=== PATIENT | female | born 1930 | race Caucasian/White ===

== ENCOUNTER 2017-05-05 07:47 | Day surgery (SDC) | payer MEDICARE, OTHER ==
[2017-05-04 13:17] VITALS: BMI 29.9
[2017-05-05] VITALS (10 sets, daily range): BP systolic 148–161; BP diastolic 67–78; PULSE 65–69; RESP 15–18; Ht 149.9 cm; Wt 65.2 kg
[~2017-05-05] VITALS: Ht 149.9 cm; Wt 65.2 kg
--- NOTE | 2017-05-05 03:57 | PREOPHP ---
DATE OF ADMISSION: 05/05/2017 HISTORY OF PRESENT ILLNESS: This 86-year-old patient is admitted for elective cataract surgery of the left eye. The patient has had progressive deterioration in both eyes over the past 6 months without any prior history of eye disease or injury, other than a pterygium surgery of the left eye 10 years ago. PAST MEDICAL HISTORY: The patient's systemic history is positive for hypothyroidism, systemic hypertension. MEDICATIONS: Current medication includes levothyroxine, lisinopril, aspirin (discontinued 1 week prior to surgery). Ibuprofen. ALLERGIES: THERE ARE NO KNOWN ALLERGIES. PHYSICAL EXAMINATION: EYES: On examination, visual acuity best corrected is 20/70 in the right eye and hand motion vision in the left eye. Slit lamp examination reveals the presence of some hazy corneal surface in the nasal quadrant of the right eye where the patient prior previously had pterygium surgery. Examination of the lens reveals anterior cortical nuclear sclerotic and posterior subcapsular cataract, greater in the left eye than the right eye. Applanation tonometry is 20 mmHg. Examination of the retina in the right eye was within normal limits and in the left eye is obscured by the advanced cataract. DIAGNOSIS: Mature cataract, left eye. PLAN: Cataract extraction with lens implant, left eye. The risks and alternatives of the surgery have been discussed with the patient. The patient has opted to proceed with surgery Dictated By: Angelo Chandler MD /[email or web address]/cecily /Document#: [id number]
[~2017-05-05 07:47] MED LIST: ASPI-664 PO; BALANCED SALT SOLN 500 ML OPH IRRIG ONE; LIDOCAINE 2% (SDV) 5 ML INJ ONE; PROPOFOL 200 MG INJ ONE; THYROID MEDS
[2017-05-05] MEDS ORDERED: CYCLOPENTOLATE/PHENYLEPH 2 ML OPH OPER SCH (08:00)
[2017-05-05] MEDS ORDERED: CIPROFLOXACIN 0.3% 2.5 ML OPH OPER SCH (08:00)
[2017-05-05] MEDS ORDERED: DICLOFENAC 0.1% 2.5 ML OPH OPER SCH (08:00)
[2017-05-05] MEDS ORDERED: TROPICAMIDE 1% 2 ML OPH OPER SCH (08:00)
[2017-05-05] MEDS ORDERED: LEVO25TA50 PO (08:22)
[2017-05-05] MEDS ORDERED: LISI20TA11 PO (08:22)
[2017-05-05] MEDS ORDERED: CEFAZOLIN 1 GM INJ ONE (10:26)
[2017-05-05] MEDS ORDERED: LIDOCAINE 4% (MPF) 5 ML INJ ONE (10:26)
[2017-05-05] MEDS ORDERED: CARBACHOL 0.01% 1.5 ML OPH INJ ONE (10:27)
[2017-05-05] MEDS ORDERED: DEXAMETHASONE 4 MG/ML 1 ML INJ ONE (10:27)
[2017-05-05] MEDS ORDERED: GENTAMICIN 80 MG INJ ONE (10:27)
[2017-05-05] MEDS ORDERED: EPINEPHrine 1 MG INJ ONE ×2 (10:27→11:57)
[2017-05-05] MEDS ORDERED: HYALURONATE/CHONDROITIN 1ML OPH INJ ONE (10:27)
[2017-05-05] MEDS ORDERED: CARBACHOL 0.01% 1.5 ML OPH INJ IO ONE (11:07)
[2017-05-05] MEDS ORDERED: CEFAZOLIN 1 GM INJ INJ ONE (11:08)
[2017-05-05] MEDS ORDERED: DEXAMETHASONE 4 MG/ML 1 ML INJ INJ ONE (11:08)
[2017-05-05] MEDS ORDERED: HYALURONATE/CHONDROITIN 1ML OPH INJ IO ONE (11:08)
[2017-05-05] MEDS ORDERED: hydrALAzine 20 MG INJ IV PRN (11:30)
[2017-05-05] MEDS ORDERED: ONDANSETRON 4 MG INJ IV PRN (11:30)
[2017-05-05] MEDS ORDERED: MEPERIDINE 25 MG INJ IV PRN (11:30)
[2017-05-05] MEDS ORDERED: FENTAnyl 50 MCG/ML VIAL IV PRN (11:30)
[2017-05-05] MEDS ORDERED: METOCLOPRAMIDE 10 MG INJ IV PRN (11:30)
[2017-05-05] MEDS ORDERED: DIPHENHYDRAMINE 50 MG INJ IV PRN (11:30)
[2017-05-05] MEDS ORDERED: hydrALAzine 20 MG INJ ONE (11:35)
[2017-05-05] MEDS ORDERED: HYALURONATE/CHONDROITIN 1ML OPH INJ ZFS ONE (14:00)
--- NOTE | 2017-05-11 10:28 | OPR ---
DATE OF OPERATION: 05/05/2018 PREOPERATIVE DIAGNOSIS: Mature cataract, left eye. POSTOPERATIVE DIAGNOSIS: Mature cataract, left eye. OPERATION PERFORMED: Cataract extraction with lens implant, left eye. SURGEON: Angelo Chandler MD ANESTHESIA: . OPERATIVE PROCEDURE: The patient was brought to the operating room on an eye gurney, positioned appropriately, attached electrocardiogram monitor, and given oxygen by nasal cannula. After intravenous sedation was administered, the patient received local anesthesia using lidocaine 4 percent, given lid block and retrobulbar injection. The patient was then prepped and draped in the usual sterile manner and a speculum was inserted between the lids of the left eye. Two paracentesis incisions were made with Superblade in the supranasal and supratemporal cornea adjacent to the limbus. Following this, a 3.0 mm keratome was used to enter the anterior chamber through the 12 o'clock position through clear cornea. An irrigating cystotome was introduced into the anterior chamber and the chamber was filled with DisCoVisc. A large anterior capsulotomy was performed and then balanced salt solution was used for hydrodissection. Phacoemulsification of the lens nucleus was begun using the higher power setting on the [employer] phacoemulsification machine. During the procedure, following sculpting of the lens nucleus prior to removal of the fragments, the [employer] instrument failed and the foot pedal was no longer able to turn on the ultrasonic power. A brief period of time elapsed during which a change was made to the [employer] phacoemulsification unit, at which point the phacoemulsification was then continued and remnants of the lens nucleus was removed. There was noted . DisCoVisc . The through the conjunctiva fornix inferiorly. The speculum was then removed. Ciprofloxacin drops placed on the surface of the eye and the eye was patched. The patient then left the operating room in satisfactory condition. Dictated By: Angelo Chandler MD /[email or web address]/vivek /Document#: [id number]
== END 2017-05-05 13:14 | disposition home or self-care (01) ==
LOC: SDS 07:47
PROVIDERS: ATTEND Ophthalmology
DX: H25.12 Age-related nuclear cataract, left eye (principal); I10 Essential (primary) hypertension; E11.9 Type 2 diabetes mellitus without complications
CPT/HCPCS: 66984; J0171; J0360; J0690; J1100; J1580; V2632

== ENCOUNTER 2017-06-16 07:04 | Day surgery (SDC) | payer MEDICARE, OTHER ==
--- NOTE | 2017-06-15 11:51 | PREOPHP ---
DATE OF ADMISSION: 06/16/2017 HISTORY OF PRESENT ILLNESS: This 86-year-old patient is admitted for elective cataract surgery of the right eye. The patient has had progressive deterioration of vision for approximately a half of year and 1 month ago underwent cataract surgery in the left eye with good visual result. No other prior history of eye disease other than undergoing pterygium surgery of the left eye 10 years ago. PAST MEDICAL HISTORY: The patient's systemic history is positive for hypothyroidism and systemic hypertension. CURRENT MEDICATIONS: Levothyroxine, lisinopril, and aspirin (discontinued 1 week prior to surgery). PHYSICAL EXAMINATION: HEENT: Visual acuity with best correction is currently 20/70 in the right eye and 20/40 in the left eye. Slit lamp examination reveals anterior cortical and nucleus sclerotic and posterior subcapsular cataract in the right eye. There was a posterior chambered intraocular lens in the left eye. Applanation tonometry is 15 mmHg. Examination of the retina appears within normal limits. DIAGNOSIS: Cataract right eye. PLAN: Cataract extraction with lens implant right eye. The risks and alternatives to the surgery have been discussed the patient, as well as the hope for improvement of visual acuity leading to greater ability to perform activities of daily living. The patient understands this and agrees to proceed with surgery. Dictated By: Angelo Chandler MD /[email or web address]/mandi /Document#: [id number]
[~2017-06-16] VITALS: Ht 139.7 cm; Wt 63.0 kg
[2017-06-16] VITALS (11 sets, daily range): BP systolic 119–146; BP diastolic 58–74; PULSE 54–65; RESP 14–18; Ht 139.7 cm; Wt 63.0 kg
[~2017-06-16 07:04] MED LIST changes: -BALANCED SALT SOLN 500 ML OPH IRRIG ONE; +CIPROFLOXACIN 0.3% 2.5 ML OPH OPER SCH; +CYCLOPENTOLATE/PHENYLEPH 2 ML OPH OPER SCH; +DICLOFENAC 0.1% 2.5 ML OPH OPER SCH; +LEVO25TA50 PO; -LIDOCAINE 2% (SDV) 5 ML INJ ONE; +LISI20TA11 PO; -THYROID MEDS; +TROPICAMIDE 1% 3ML OPH OPER SCH
[2017-06-16] MEDS ORDERED: GENTAMICIN 80 MG INJ ONE (10:04)
[2017-06-16] MEDS ORDERED: LIDOCAINE 4% (MPF) 5 ML INJ ONE (10:04)
[2017-06-16] MEDS ORDERED: NA HYALURONATE/CHONDROITIN 0.5 ML SYG ONE (10:04)
[2017-06-16] MEDS ORDERED: EPINEPHrine 0.1 MG/ML SYG ONE (10:04)
[2017-06-16] MEDS ORDERED: DEXAMETHASONE 4 MG/ML 1 ML INJ ONE (10:04)
[2017-06-16] MEDS ORDERED: CEFAZOLIN 1 GM INJ ONE (10:04)
[2017-06-16] MEDS ORDERED: CARBACHOL 0.01% 1.5 ML OPH INJ ONE (10:04)
[2017-06-16] MEDS ORDERED: EPINEPHrine 1 MG INJ ONE (10:05)
[2017-06-16] MEDS ORDERED: OXYCODONE/ACETAMINOPHEN (5/325) TAB PO PRN (10:30)
[2017-06-16] MEDS ORDERED: LABETALOL HCL 20MG INJ IV PRN (10:30)
[2017-06-16] MEDS ORDERED: HYDROmorphONE (0.2 MG/ML) 10ML SYG IV PRN (10:30)
[2017-06-16] MEDS ORDERED: ONDANSETRON 4 MG INJ IV PRN (10:30)
[2017-06-16] MEDS ORDERED: hydrALAzine 20 MG INJ IV PRN (10:30)
[2017-06-16] MEDS ORDERED: NA HYALURONATE/CHONDROITIN 0.5 ML SYG RIGHT EYE ONE (10:31)
--- NOTE | 2017-06-16 10:59 | SIPON ---
Date/Time of Note Date/Time of Note DATE: 06/16/17 TIME: 10:58 Operative Report Preoperative Diagnosis cataract od Postoperative Diagnosis same Operation/Procedure Performed cataract surgery od Surgeon: EILEEN FERNANDES MD Anesthesia Type: MAC Estimated Blood Loss: none Transfusion Required: no Specimen: none Grafts/Implants posterior chamber lens implant Complications: no EILEEN FERNANDES MD Jun 16, 2017 10:59
--- NOTE | 2017-06-16 11:42 | OPR ---
DATE OF OPERATION: 06/16/2017 PREOPERATIVE DIAGNOSIS: Cataract, right eye. POSTOPERATIVE DIAGNOSIS: Cataract, right eye. SURGEON: Angelo Chandler MD PRODUCT INSPECTION SUPERVISOR: ANESTHESIA: Monitored anesthesia. ANESTHESIOLOGIST: Dr. Real. OPERATION: Phacoemulsification with posterior chamber intraocular lens implant, right eye. PROCEDURE: The patient was brought to the operating room and placed on the table with an IV in place and the patient attached to an equipment monitor phototypesetting. Oxygen was given via face mask. After some intravenous sedation was administered, local anesthesia was given using Xylocaine 2% with epinephrine, mixed with Marcaine 0.5%. This was given in a lid block and retrobulbar injection. The patient was then prepped and draped in the usual sterile manner. A wire lid speculum was inserted between the lids of the right eye. A Superblade was used to enter the anterior chamber at the corneoscleral limbus at the 10:30 o'clock position. A separate incision was made using a 3.0-mm keratome which entered the corneoscleral junction at the 12 o'clock position. Through this 3- mm opening, an irrigating cystotome was introduced into the anterior chamber. The chamber was filled with Viscoat and an anterior capsulotomy was performed. Balanced salt solution was then used for hydrodissection of the lens. A phacoemulsification handpiece was then brought into the field and introduced into the anterior chamber. The lens nucleus was emulsified using a deep groove and cracking the nucleus into quadrants. Following this, each quadrant was aspirated and emulsified at the pupillary margin. After this was completed, the irrigation/aspiration handpiece was brought to the field, introduced into the posterior chamber, and the lens cortical material was removed. When this was completed, additional Viscoat was injected into the anterior and posterior chambers. The 3-mm opening had its internal lips enlarged, and then the posterior chamber intraocular lens measuring 24.0 diopters ([employer], model LI61AO) was then injected into the posterior chamber using the lens injector system. After the leading haptic was introduced into the capsular bag and the lens optic was present in the center of the eye, the injector was removed and the trailing haptic was grasped with non-toothed forceps and introduced into the capsular fold superiorly. A Sinskey hook was then used to rotate the intraocular lens so that the lips were oriented in the horizontal meridian. One 10-0 nylon suture was placed across the wound. Prior to tying, the irrigation/aspiration handpiece was reintroduced into the anterior chamber to remove the Viscoat. Miochol was instilled to constrict the pupil, and then the 10-0 nylon suture was tied. The ends were cut short and then the knot was buried. Then, 0.5 mL of dexamethasone and 0.5 mL of Ancef were injected into the sub-Tenon space in the inferior fornix. Ciloxan drops were then placed on the surface of the eye. The speculum was removed and a patch was applied. The patient then left the operating room in satisfactory condition. Dictated By: Angelo Chandler MD /[email or web address]/nadja /Document#: [id number]
== END 2017-06-16 12:38 | disposition home or self-care (01) ==
LOC: SDS 07:04
PROVIDERS: ATTEND Ophthalmology
DX: H25.11 Age-related nuclear cataract, right eye (principal); E03.9 Hypothyroidism, unspecified; I10 Essential (primary) hypertension; E11.9 Type 2 diabetes mellitus without complications
CPT/HCPCS: 66984; 82962; J0171; J0690; J1100; J1580; V2632